=== PATIENT | female | born 1935 | race Caucasian/White ===

== ENCOUNTER → 2019-04-15 | Outpatient (CLI) | payer MEDICARE, OTHER ==
--- NOTE | 2019-04-15 12:59 | KCIC ---
Bilateral digital screening mammograms Reason for examination: Routine screening. New baseline. Comparison: No priors available. Routine CC and MLO digital views obtained. Interpretation was made with the benefit of CAD. The skin and nipples show no abnormalities. No abnormal lymph nodes are seen. The breast parenchyma is scattered fibroglandular elements. (Breast density: Category B.) There are no suspicious masses, suspicious calcifications or architectural distortions. Benign vascular calcifications. Left upper outer breast 14 cm from the nipple subcentimeter intramammary lymph node with fatty notch., Benign. Left outer breast 4:00 position 10 cm from the nipple demonstrates a oval subcentimeter circumscribed nodular mass with calcifications. Impression: Small mass with calcifications of the left outer breast as described above. Further evaluation with left breast ultrasound is advised. BI-RADS Category 0: Incomplete examination. "Our facility is accredited by the [employer] Mammography [employer]." This patient's information has been entered into a reminder system for the patient to be notified with the results of her examination and a target date for the next mammogram. Electronically signed by: Irving Ramos MD (04/15/2019 12:56 PM) [facility]
== END | disposition home or self-care (01) ==
LOC: KCIC MAMMO 10:22
PROVIDERS: ATTEND Family Medicine
DX: Z12.31 Encounter for screening mammogram for malignant neoplasm of breast (principal); N63.23 Unspecified lump in the left breast, lower outer quadrant; N64.89 Other specified disorders of breast
CPT/HCPCS: 77067

== ENCOUNTER → 2019-04-30 | Outpatient (CLI) | payer MEDICARE, OTHER ==
--- NOTE | 2019-04-30 15:09 | KCIC ---
Left breast ultrasound: Reason for examination: Small nodule with calcifications in the lower outer quadrant of the left breast on mammographic screening. Comparison is made to mammographic exam dated 04/15/2019. Ultrasound examination of the left breast and axilla was performed with attention to the area of mammographic concern. At the 3:30 position 10 cm from the nipple, there is a hypoechoic nodule with calcifications measuring approximately 4.3 mm in greatest dimension. This corresponds to the area of mammographic concern and further evaluation with ultrasound-guided biopsy is recommended. There are no other cystic or solid nodules. No abnormal appearing lymph nodes are seen in the axilla. IMPRESSION: 4.3 mm nodule with calcifications at the 3:30 position 10 cm from the nipple. Recommend further evaluation with ultrasound-guided biopsy. BI-RADS Category 4: Suspicious. The patient was advised to follow-up with her clinician and the medical health researcher for Dr. David was notified about these findings at 1505 on 04/30/2019. "Our facility is accredited by the [employer] Mammography [employer]." This patient's information has been entered into a reminder system for the patient to be notified with the results of her examination and a target date for the next mammogram. Electronically signed by: Yvonne Rey MD (04/30/2019 3:06 PM) [facility]
== END | disposition home or self-care (01) ==
LOC: KCIC US 12:47
PROVIDERS: ATTEND Family Medicine
DX: N63.23 Unspecified lump in the left breast, lower outer quadrant (principal)
CPT/HCPCS: 76641

== ENCOUNTER → 2019-05-09 | Outpatient (CLI) | payer MEDICARE, OTHER ==
--- NOTE | 2019-05-09 14:19 | RAD ---
Examination: 1. Ultrasound-guided left breast core needle biopsy. 2. Left postprocedure diagnostic mammogram. INDICATION: 83-year-old woman recalled from screening for a nodule in the lateral left breast subsequently recommended for biopsy. COMPARISON: Screening mammogram of April 15, 2019 and left diagnostic mammogram of April 30, 2019. FINDINGS: Informed consent was obtained and an appropriate procedural pause observed. Using standard sterile technique, ultrasound guidance and local anesthesia with lidocaine, a single 14-gauge spring-loaded core biopsy sample of the mass in the lateral posterior right breast was obtained with specimens placed in formalin. Given the small size of the targeted mass (4 mm), and the development of a small amount of postbiopsy hemorrhage following the first pass, additional samples were deferred in favor of timely biopsy clip placement at the biopsy site and hemostasis was assured with direct breast compression for 10 minutes. Subsequent digital left postprocedure mammogram in the CC and MLO projections showed satisfactory positioning of the S shaped biopsy marker in the region of the mass recalled from screening in the upper outer left breast. No significant postbiopsy hematoma is apparent. Patient tolerated the procedure without incident. Postprocedure instructions were reviewed on the patient discharged in stable condition to follow-up with her primary care physician. IMPRESSION: Successful ultrasound-guided left breast core needle biopsy of a 4 mm mass at the approximate 3:30 o'clock position 10 cm from the nipple. Pathology results are pending. An addendum will be issued once pathology results become available.
--- NOTE | 2019-05-12 15:52 | PATHOLOGY ---
[facility] Accession Number: [id number] . 01 Material submitted: . breast - LEFT BREAST BIOPSY, 3:30, 10CMFN. Modifiers: left, 3:00 . 01 Clinical history: . Left breast mass . 02 Diagnosis: Breast tissue, left breast mass at 3:30, needle biopsy: - Fibrocystic changes with components of stromal fibrosis, duct ectasia, cystic change and apocrine metaplasia. ([facility] 05/12[facility]) [facility] 05/12/2019 0935 Local . 02 Comment: There is no atypia or evidence of malignancy. Please correlate with radiographic findings. ([facility] 05/12/2019) . 02 Electronically signed: . Liam Capps MD, Pathologist NPI- [id number] . 01 Gross description: . The specimen is received in formalin, labeled "Estephania Damon, left breast 330 10 cm from nipple". Received is a single needle core of fibrofatty tissue measuring 1.7 cm in length by 0.3 cm in diameter. The specimen is submitted entirely in cassette A1. The cold ischemic time is 1 minute. The total formalin fixation time is 9 hours and 24 minutes. ([facility]; 05/09/2019) [facility] 05/09/2019 1704 Local . 02 Pathologist provided ICD-10: N60.12, N60.32, N60.42, N60.82 . 02 CPT . 902846 Specimen Comment: A courtesy copy of this report has been sent to [phone] Specimen Comment: [id number], Specimen Comment: Report sent to ,DR OSORIO / DR TO Performed at: 01 [facility] [address], [place], [place] [id number] MD Brandon Randhawa MD Phone: [phone] Performed at: 02 [facility] [address] [place], [place] [id number] MD Liam Capps MD Phone: [phone]
== END ==
LOC: US 11:48
PROVIDERS: ATTEND Surgery
DX: N63.20 Unspecified lump in the left breast, unspecified quadrant (principal); N60.32 Fibrosclerosis of left breast
CPT/HCPCS: 19083; 77065; 88305; C1713; 19081; 76942

== ENCOUNTER → 2020-09-07 | Outpatient (CLI) | payer MEDICARE, OTHER ==
--- NOTE | 2020-09-07 16:48 | CARD ---
MR#: [id number] Date of Study: 09/07/2020 Ordering Physician: LUPE TAVARES, Referring Physician: LUPE TAVARES Tech: Fernando Lee [facility] APPROVED REPORT EXAM: Two-dimensional and M-mode echocardiogram with Doppler and color Doppler. Other Information Quality : GoodHR: 82bpm Rhythm : NSR INDICATION Hypertension/HCVD RISK FACTORS Hypertension 2D DIMENSIONS Left Atrium(2D)3.2 (1.6-4.0cm)IVSd0.9 (0.7-1.1cm) Aortic Root(2D)3.5 (2.0-3.7cm)LVDd3.7 (3.9-5.9cm) LVOT Diameter1.9 (1.8-2.4cm)PWd1.0 (0.7-1.1cm) LVDs2.6 (2.5-4.0cm)FS (%) 29.3 % SV33.5 mlLVEF(%)57.1 (>50%) Aortic Valve AoV Peak Anibal.149.3cm/sAoV VTI27.2cm AO Peak GR.8.9mmHgLVOT Peak Anibal.86.2cm/s AO Mean GR.5mmHgAVA (VMAX)1.65cm2 AI P 1/2 Ipwi709rw Mitral Valve MV E Tuyfgvkv09.7cm/sMV E Peak Gr.6mmHg MV DECEL [id number] A Nqrexkwt342.3cm/s MV E Mean Gr.2mmHgE/A Ratio0.6 MV A Lxblqjjt028lb Pulmonary Valve PV Peak Kmnwpbsr382.1cm/s Tricuspid Valve TR P. Otuysmck710mu/sTR Peak Gr.26mmHg Pulmonary Vein S1 Myegldrz94.2cm/sD2 Sloeeoav60.9cm/s PVa nllzwmxa61mooj LEFT VENTRICLE The left ventricle is normal size. There is normal left ventricular wall thickness. The left ventricu lar systolic function is normal. The ejection fraction is 55-60%. There is normal LV segmental wall m otion. Transmitral Doppler flow pattern is Grade I-abnormal relaxation pattern. No left ventricle thr ombus noted on this study. There is no ventricular septal defect visualized. RIGHT VENTRICLE The right ventricle is normal size. There is normal right ventricular wall thickness. The right ventr icular systolic function is normal. ATRIA The left atrium size is normal. The right atrium size is normal. The interatrial septum is intact wit h no evidence for an atrial septal defect or patent foramen ovale as noted on 2-D or Doppler imaging. AORTIC VALVE The aortic valve is normal in structure and function. Doppler and Color Flow revealed trace aortic re gurgitation. There is no significant aortic valvular stenosis. There is no aortic valvular vegetation . MITRAL VALVE The mitral valve is normal in structure and function. There is no evidence of mitral valve prolapse. There is no mitral valve stenosis. Doppler and Color-flow revealed trace to mild mitral regurgitation . TRICUSPID VALVE The tricuspid valve is normal in structure and function. Doppler and Color Flow revealed no tricuspid valve regurgitation noted. There is no tricuspid valve prolapse or vegetation. There is no tricuspid valve stenosis. PULMONIC VALVE The pulmonary valve is normal in structure and function. Doppler and Color Flow revealed no pulmonic valvular regurgitation. There is no pulmonic valvular stenosis. GREAT VESSELS The aortic root is normal in size. The ascending aorta is normal in size. The pulmonary artery is nor mal. PERICARDIAL EFFUSION There is no pleural effusion. There is no evidence of significant pericardial effusion. Critical Notification Critical Value: No <Conclusion> The left ventricular systolic function is normal. The ejection fraction is 55-60%. There is normal LV segmental wall motion. Transmitral Doppler flow pattern is Grade I-abnormal relaxation pattern. Trace to mild mitral regurgitation. There is no evidence of significant pericardial effusion. Signed by : Benjamin Lennon, Electronically Approved : 09/07/2020 16:47:41
--- NOTE | 2020-09-07 17:22 | RESP ---
DATE OF SERVICE: 09/07/2020 ATTENDING PHYSICIAN: Lula Lloyd MD The patient underwent full pulmonary function testing pre- and post-bronchodilator. The FEV1/FVC ratio was 57%, FEV1 was 1.34 liters at 75% of predicted. FVC was 2.33 liters at 98% of predicted. There was an 18% improvement in her FEV1 post-bronchodilator increasing it to 1.57. Total lung capacity was increased. Diffusion capacity was preserved. IMPRESSION: 1. Gtkq-dd-mhngjxuo obstructive lung disease. 2. Significant bronchodilator response. 3. Perfusion defect, preserved. ILDA/SONAM/KERA DR: Korey TID: [id number]
== END ==
LOC: ECHO 08:44
PROVIDERS: ATTEND Internal Medicine
DX: I34.0 Nonrheumatic mitral (valve) insufficiency (principal); I10 Essential (primary) hypertension; J45.909 Unspecified asthma, uncomplicated
CPT/HCPCS: 93306; 94060; 94640; 94726; 94729; 94664